=== PATIENT | female | born 1935 | race Caucasian/White ===

== ENCOUNTER 2016-11-07 00:37 | Inpatient (IN) | payer MEDICARE ==
[2016-11-07] VITALS (11 sets, daily range): BP systolic 130–205; BP diastolic 60–91; PULSE 88–119; RESP 14–33; TEMP 97.7–100.6; O2SAT 92–96
[~2016-11-07] VITALS: Ht 160 cm; Wt 64.4 kg
[~2016-11-07 00:37] MED LIST: ASPI81 PO; ATOR20TA42 PO; BACT800T5 PO; CALTCHW4 PO; CENTTAB9 PO; HYDR-2768 PO; METO50TA PO; Z.0.WALKERFRONT
[2016-11-07] MEDS ORDERED: CENTTAB PO (00:52)
[2016-11-07] MEDS ORDERED: HYDR25TA5 PO (00:52)
[2016-11-07] MEDS ORDERED: METO50TA PO (00:52)
[2016-11-07] MEDS ORDERED: ASPI1TAB69 PO (00:52)
[2016-11-07] MEDS ORDERED: ATOR20TA15 PO (00:52)
[2016-11-07] MEDS ORDERED: CALCTAB33 PO (00:52)
[2016-11-07] MEDS ORDERED: SODIUM CHLOR 0.9% 1000 ML INJ 1,000 ML IV SCH ×2 (00:59→02:30)
[2016-11-07] MEDS ORDERED: SODIUM CHLORIDE 0.9% FLUSH 10 ML FLUSH IVF PRN (01:00)
--- NOTE | 2016-11-07 01:10 | PD ---
HPI Chief Complaint: General Weakness Time Seen by Provider: 00:43 Travel History International Travel<30 days: No Contact w/Intl Traveler<30days: No Traveled to known affect area: No History of Present Illness HPI Send 81 year-old woman who presents to the emergency department brought in by EMS, with her family, for feeling weak. She lives by herself. She normally walks with a walker. Her daughter is visiting from out of state. The report she's been weaker over the past several days. At lunch today she can't walk to the restaurant had to be wheeled on her walker. Daughter left for the pain came back to find her on the couch. Patient states she was unable to get up off the couch on her own. She's had weakness that waxes and wanes in severity but has never been this bad before. She denies any other associated symptoms. No urinary complaints. No abdominal pain. No shortness of breath or chest pain. No other complaints. History Past Medical History Narrative Medical Hypertension hyperlipidemia Menopausal: Yes Social History Alcohol Use: Yes (OCCASSIONALLY) Tobacco Use: No Allergies-Medications (Allergen,Severity, Reaction): Coded Allergies: Epinephrine (Verified Allergy, Severe, 11/07/16) Morphine (Verified Allergy, Severe, 11/07/16) Xylocaine/Epinephrine (Verified Allergy, Severe, 05/08/16) LEGS WEAK; SOB; INTERMEDIATE REACTION Simvastatin (Unverified Allergy, Intermediate, SEVERE PAIN IN LEGS, ) Tramadol (Unverified Allergy, Intermediate, DOUBLE VISION , 05/08/16) Cephalexin (Unverified Allergy, Mild, ITCHING, 05/08/16) Lidocaine (Verified Allergy, Mild, 05/08/16) LEGS WEAK ; SOB Reported Meds & Prescriptions Reported Meds & Active Scripts Active Reported Calcium 600+D Plus Minerals (Calcium Carbonate-Vitamin D W/Minerals) 600-400 Mg- Unit Tab 1 Tab PO DAILY Centrum Silver (Multiple Vitamins W/ Minerals) 1 Tab 1 Tab PO DAILY Aspirin 81 Mg Tabdr 81 Mg PO DAILY Metoprolol Tartrate 50 Mg Tab 50 Mg PO BID Atorvastatin (Atorvastatin Calcium) 20 Mg Tab 20 Mg PO HS Hydrochlorothiazide 25 Mg Tab 25 Mg PO DAILY Review of Systems Except as stated in HPI: all other systems reviewed are Neg Physical Exam Narrative GENERAL: Elderly 81 year-old woman, no acute distress. SKIN: Focused skin assessment warm/dry. HEAD: Atraumatic. Normocephalic. EYES: Pupils equal and round. No scleral icterus. No injection or drainage. ENT: No nasal bleeding or discharge. Dry mucous membranes. NECK: Trachea midline. No JVD. CARDIOVASCULAR: Heart rate rapid but regular. No murmurs. RESPIRATORY: Mild tachypnea. Lungs are clear. No respiratory distress. GASTROINTESTINAL: Abdomen soft, non-tender, nondistended. Hepatic and splenic margins not palpable. MUSCULOSKELETAL: No obvious deformities. No edema. NEUROLOGICAL: Awake and alert. No obvious cranial nerve deficits. She has a suggestion of some right sided facial droop or asymmetry but it's really not clear. Overall her cranial nerve exam is unremarkable. She has generalized weakness and can't support her arms above the horizontal for more than 5 seconds , can't keep her legs up off the bed for more than one or 2 seconds. She has no focal weakness. Data Data Last Documented VS Vital Signs Date Time Temp Pulse Resp B/P Pulse Ox O2 Delivery O2 Flow Rate FiO2 11/07/16 01:36 116 20 188/83 95 Room Air 11/07/16 00:40 98.5 Orders Complete Blood Count With Diff (11/07/16 00:59) Comprehensive Metabolic Panel (11/07/16 00:59) Prothrombin Time / Inr (Pt) (11/07/16 00:59) Act Partial Throm Time (Ptt) (11/07/16 00:59) Troponin I (11/07/16 00:59) Thyroid Stimulating Hormone (11/07/16 00:59) Lactic Acid Sepsis Protocol (11/07/16 00:59) Urinalysis - C+S If Indicated (11/07/16 00:59) Chest, Single Ap (11/07/16 00:59) Ct Brain W/O Iv Contrast(Rout) (11/07/16 00:59) Blood Glucose (11/07/16 00:59) Ecg Monitoring (11/07/16 00:59) Iv Access Insert/Monitor (11/07/16 00:59) Cath For Specimen (11/07/16 00:59) Oximetry (11/07/16 00:59) Sodium Chloride 0.9% Flush (Ns Flush) (11/07/16 01:00) Sodium Chlor 0.9% 1000 Ml Inj (Ns 1000 M (11/07/16 00:59) Drug Screen, Random Urine (11/07/16 00:59) Alcohol (Ethanol) (11/07/16 00:59) Urine Culture (11/07/16 01:03) Sodium Chlor 0.9% 1000 Ml Inj (Ns 1000 M (11/07/16 02:15) Sodium Chlor 0.9% 1000 Ml Inj (Ns 1000 M (11/07/16 02:15) Admit Order (Ed Use Only) (11/07/16 ) Activity Bed Rest (11/07/16 02:23) Diet Regular Basic (11/07/16 Breakfast) Vital Signs (Adult) IZA.[id number] (11/07/16 02:23) Sodium Chlor 0.9% 1000 Ml Inj (Ns 1000 M (11/07/16 02:30) Labs Laboratory Tests Test 11/07/16 01:03 White Blood Count 4.8 TH/MM3 Red Blood Count 4.68 MIL/MM3 Hemoglobin 15.0 GM/DL Hematocrit 43.0 % Mean Corpuscular Volume 91.9 FL Mean Corpuscular Hemoglobin 32.0 PG Mean Corpuscular Hemoglobin 34.9 % Concent Red Cell Distribution Width 14.1 % Platelet Count 174 TH/MM3 Mean Platelet Volume 8.0 FL Neutrophils (%) (Auto) 77.1 % Lymphocytes (%) (Auto) 7.3 % Monocytes (%) (Auto) 13.8 % Eosinophils (%) (Auto) 1.2 % Basophils (%) (Auto) 0.6 % Neutrophils # (Auto) 3.7 TH/MM3 Lymphocytes # (Auto) 0.4 TH/MM3 Monocytes # (Auto) 0.7 TH/MM3 Eosinophils # (Auto) 0.1 TH/MM3 Basophils # (Auto) 0.0 TH/MM3 CBC Comment AUTO DIFF Differential Total Cells 100 Counted Neutrophils % (Manual) 56 % Band Neutrophils % 14 % Lymphocytes % 11 % Monocytes % 12 % Eosinophils % 1 % Basophils % 1 % Neutrophils # (Manual) 3.6 TH/MM3 Metamyelocytes 4 % Myelocytes 1 % Differential Comment FINAL DIFF MANUAL Platelet Estimate NORMAL Platelet Morphology Comment NORMAL Prothrombin Time 11.4 SEC Prothromb Time International 1.0 RATIO Ratio Activated Partial 23.1 SEC Thromboplast Time Urine Color YELLOW Urine Turbidity CLEAR Urine pH 6.5 Urine Specific [place] 1.022 Urine Protein 30 mg/dL Urine Glucose (UA) NEG mg/dL Urine Ketones NEG mg/dL Urine Occult Blood TRACE Urine Nitrite NEG Urine Bilirubin NEG Urine Urobilinogen LESS THAN 2.0 MG/DL Urine Leukocyte Esterase NEG Urine RBC 3 /hpf Urine WBC 1 /hpf Urine WBC Clumps RARE Urine Squamous Epithelial <1 /hpf Cells Urine Mucus FEW /lpf Microscopic Urinalysis Comment CATH-CULTURE IND Sodium Level 144 MEQ/L Potassium Level 3.8 MEQ/L Chloride Level 109 MEQ/L Carbon Dioxide Level 29.3 MEQ/L Anion Gap 6 MEQ/L Blood Urea Nitrogen 20 MG/DL Creatinine 0.73 MG/DL Estimat Glomerular Filtration 76 ML/MIN Rate Random Glucose 132 MG/DL Lactic Acid Level 1.8 mmol/L Calcium Level 9.1 MG/DL Total Bilirubin 0.4 MG/DL Aspartate Amino Transf 31 U/L (AST/SGOT) Alanine Aminotransferase 41 U/L (ALT/SGPT) Alkaline Phosphatase 80 U/L Troponin I LESS THAN 0.02 NG/ML Total Protein 7.3 GM/DL Albumin 3.9 GM/DL Thyroid Stimulating Hormone 3.070 uIU/ML 3rd Gen Urine Opiates Screen NEG Urine Barbiturates Screen NEG Urine Amphetamines Screen NEG Urine Benzodiazepines Screen NEG Urine Cocaine Screen NEG Urine Cannabinoids Screen NEG Ethyl Alcohol Level LESS THAN 3 MG/DL MDM Medical Decision Making Medical Screen Exam Complete: Yes Emergency Medical Condition: Yes Interpretation(s) My review of EKG: Sinus tachycardia rate of 116, normal axis, normal intervals, no definite evidence of acute ischemia. LABS: CBC unremarkable CMP seen them for BUN of 20 Lactate 1.8 Troponin negative TSH [address]: No acute intracranial abnormality. Age-related atrophy and suspected small vessel ischemic change in the white matter. Sphenoid sinus disease. Differential Diagnosis Infection, dehydration, electrolyte abnormalities, head bleed, other Narrative Course Medical decision making INITIAL: Is an 81 year-old woman presents emergent from generalized weakness. Unable to the couch. She appears very generally weak. I don't see any focal abnormalities. She has tachycardia, tachypnea, and appears clinically dehydrated. She states she's been eating and drinking normally. Her blood sugar is not abnormally high. We'll check labs, CT, x-ray, reassess. FINAL: 81 year-old woman generalized weakness. Etiology is unclear. She appears clinically dehydrated and her BUN to creatinine ratio is elevated. She is abnormal vital signs including tachypnea and tachycardia. Etiology is unclear. She given IV fluid hydration. She'll be admitted for observation and further evaluation. Diagnosis Primary Impression: Generalized weakness Rubén Cuellar MD Nov 07, 2016 01:10
[2016-11-07 01:22] LABS: AUTOMATED NEUTROPHIL # 3.7 TH/MM3 (1.8-7.7); BASOPHIL % 0.6 % (0.0-2.0); EOSINOPHIL # 0.1 TH/MM3 (0-0.4); EOSINOPHIL % 1.2 % (0.0-4.0); LYMPH % 7.3 % (9.0-44.0); LYMPHOCYTE # 0.4 TH/MM3 (1.0-4.8); MEAN CELL VOLUME 91.9 FL (80.0-100.0); MEAN CORPUSCULAR HGB CONC 34.9 % (32.0-36.0); MONO % 13.8 % (0.0-8.0); NEUT % 77.1 % (16.0-70.0); PLATELET COUNT 174 TH/MM3 (150-450); RED BLOOD COUNT 4.68 MIL/MM3 (4.00-5.30); RED CELL DISTRIBUTION WIDTH 14.1 % (11.6-17.2); WHITE BLOOD COUNT 4.8 TH/MM3 (4.0-11.0)
[2016-11-07 01:28] LABS: AMPHETAMINE, URINE NEG (NEG); BARBITURATES, URINE NEG (NEG); COCAINE, URINE NEG (NEG)
[2016-11-07 01:32] LABS: BLOOD, URINE TRACE (NEG); COMMENT (UR) CATH-CULTURE IND; CULTURE IF INDICATED CATH CULTURE IND; GLUCOSE,URINE NEG (NEG); KETONE, URINE NEG (NEG); MUCUS URINE FEW /lpf (OCC); NITRITE,URINE NEG (NEG); PH, URINE 6.5 (5.0-8.5); SQUAMOUS EPITHELIAL CELL URINE <1 /hpf (0-5); URINE COLOR YELLOW (YELLW/STRAW)
--- NOTE | 2016-11-07 01:32 | RADRPT ---
EXAM DATE/TIME: 11/07/2016 01:16 [facility] COMPARISON: CT BRAIN W/O CONTRAST, July 12, 2014, 11:20. INDICATIONS : Inability to ambulate and slurred speech. RADIATION DOSE: 35.93 CTDIvol (mGy) MEDICAL HISTORY : Hypertension. SURGICAL HISTORY : None. ENCOUNTER: Initial ACUITY: 1 day PAIN SCALE: 0/10 LOCATION: cranial TECHNIQUE: Multiple contiguous axial images were obtained of the head. Using automated exposure control and adj ustment of the mA and/or kV according to patient size, radiation dose was kept as low as reasonably a chievable to obtain optimal diagnostic quality images. FINDINGS: CEREBRUM: The ventricles and cortical sulci are widened. There is decreased density in the periventricular whit e matter. No evidence of midline shift, mass lesion, hemorrhage or acute infarction. No extra-axial fluid collections are seen. POSTERIOR FOSSA: The cerebellum and brainstem are intact. The 4th ventricle is midline. The cerebellopontine angle i s unremarkable. EXTRACRANIAL: The visualized portion of the orbits is intact. There is bilateral sphenoid sinus disease. SKULL: The calvaria is intact. No evidence of skull fracture. CONCLUSION: 1. No acute intracranial abnormality is seen. There is age-related atrophy and suspected small vessel ischemic change in the white matter. 2. Sphenoid sinus disease. Blue Morris MD on November 07, 2016 at 1:29 Board Certified Radiologist. This report was verified electronically.
[2016-11-07 01:33] LABS: APTT (PATIENT) 23.1 SEC (24.3-30.1); PROTHROMBIN TIME - PATIENT 11.4 SEC (9.8-11.6)
[2016-11-07 01:35] LABS: ALT (GPT) 41 U/L (10-53); ANION GAP 6 MEQ/L (5-15); AST (GOT) 31 U/L (15-37); BICARBONATE 29.3 MEQ/L (21.0-32.0); BLOOD UREA NITROGEN 20 MG/DL (7-18); CHLORIDE 109 MEQ/L (98-107); GLOMERULAR FILTRATION RATE 76 ML/MIN (>89); POTASSIUM 3.8 MEQ/L (3.5-5.1); SODIUM (NA) 144 MEQ/L (136-145)
[2016-11-07 01:45] LABS: ALKALINE PHOSPHATASE 80 U/L (45-117); TOTAL BILIRUBIN ADULT 0.4 MG/DL (0.2-1.0)
[2016-11-07 01:52] LABS: HEMO FLAGS AUTO DIFF
--- NOTE | 2016-11-07 01:53 | RADRPT ---
EXAM DATE/TIME: 11/07/2016 01:20 [facility] COMPARISON: CT THORAX W CONTRAST, July 12, 2014, 17:15. CHEST SINGLE AP, July 12, 2014, 11:37. INDICATIONS : Syncope. Weakness. MEDICAL HISTORY : None. SURGICAL HISTORY : None. ENCOUNTER: Initial ACUITY: 1 day PAIN SCORE: Non-responsive. LOCATION: Bilateral chest FINDINGS: A single view of the chest demonstrates the lungs to be symmetrically aerated without evidence of mas s, infiltrate or effusion. The cardiomediastinal contours are unremarkable. Osseous structures are intact. CONCLUSION: No acute disease. Blue Morris MD on November 07, 2016 at 1:50 Board Certified Radiologist. This report was verified electronically.
[2016-11-07] MEDS ORDERED: SODIUM CHLOR 0.9% 1000 ML INJ 1,000 ML IV ONE ×2 (02:15)
[2016-11-07 02:20] LABS: BANDS 14 % (0-6); BASOPHILS 1 % (0-2); EOSINOPHILS 1 % (0-4); METAMYELOCYTES 4 % (0-1); MYELOCYTES 1 % (0-0); NEUTROPHIL # MANUAL DIFF 3.6 TH/MM3 (1.8-7.7); PLATELET ESTIMATE SMEAR NORMAL (NORMAL); PLATELET MORPHOLOGY NORMAL (NORMAL); POLYS (SEG NEUTROPHILS) 56 % (16-70); SCAN/DIFF FINAL DIFF MANUAL; WBC DIFF SAMPLE 100
[2016-11-07] MEDS ORDERED: ONDANSETRON HCL 4 MG/2 ML VIAL IV ONE (03:15)
--- NOTE | 2016-11-07 11:46 | HHI.HP ---
HPI [facility] Primary Care Physician Piero Silva MD, PhD Admission Diagnosis generalized weakness Chief Complaint: weakness Travel History International Travel<30 Days: No Contact w/Intl Traveler <30 Da: No Traveled to Known Affected Are: No History of Present Illness - Pt is 81 yo woman admitted with AMS & generalized weaknesss with slurred speech. - CT brain (11/07/16) --> NO acute findings- Pt refused MRI brain d/t implanted uterine device (?) - Pt's daughter says she was placing phone calls to family innapropriately. Her bp was very high which could have caused some encephalopathy but I also explained bp autoregulation and cva possibility. She was also clinically dehydration and now with fever. Review of Systems Other ams Past Family Social History Past Medical History htn hyperlipidemia Reported Medications Calcium 600+D Plus Minerals (Calcium Carbonate-Vitamin D W/Minerals) 600-400 Mg- Unit Tab 1 Tab PO DAILY Centrum Silver (Multiple Vitamins W/ Minerals) 1 Tab 1 Tab PO DAILY Aspirin 81 Mg Tabdr 81 Mg PO DAILY Metoprolol Tartrate 50 Mg Tab 50 Mg PO BID Atorvastatin (Atorvastatin Calcium) 20 Mg Tab 20 Mg PO HS Allergies: Coded Allergies: Epinephrine (Verified Allergy, Severe, 11/07/16) Morphine (Verified Allergy, Severe, 11/07/16) Xylocaine/Epinephrine (Verified Allergy, Severe, 05/08/16) LEGS WEAK; SOB; INTERMEDIATE REACTION Simvastatin (Unverified Allergy, Intermediate, SEVERE PAIN IN LEGS, ) Tramadol (Unverified Allergy, Intermediate, DOUBLE VISION , 05/08/16) Cephalexin (Unverified Allergy, Mild, ITCHING, 05/08/16) Lidocaine (Verified Allergy, Mild, 05/08/16) LEGS WEAK ; SOB Family History nc Social History no etoh/tob Physical Exam Vital Signs heart reg lung cta abds/nt ext no edema Vital Signs Date Time Temp Pulse Resp B/P Pulse Ox O2 Delivery O2 Flow Rate FiO2 11/07/16 10:18 146/68 11/07/16 10:14 95 3.00 11/07/16 09:30 Nasal Cannula 3.00 11/07/16 09:15 110 33 161/78 94 11/07/16 09:06 Nasal Cannula 2.00 11/07/16 08:51 99.0 109 27 164/74 92 11/07/16 05:50 97.7 119 14 165/69 92 11/07/16 03:35 114 22 166/77 95 Room Air 11/07/16 01:36 116 20 188/83 95 Room Air 11/07/16 00:40 98.5 117 20 205/91 93 Laboratory Laboratory Tests Test 11/07/16 01:03 White Blood Count 4.8 Red Blood Count 4.68 Hemoglobin 15.0 Hematocrit 43.0 Mean Corpuscular Volume 91.9 Mean Corpuscular Hemoglobin 32.0 Mean Corpuscular Hemoglobin 34.9 Concent Red Cell Distribution Width 14.1 Platelet Count 174 Mean Platelet Volume 8.0 Neutrophils (%) (Auto) 77.1 Lymphocytes (%) (Auto) 7.3 Monocytes (%) (Auto) 13.8 Eosinophils (%) (Auto) 1.2 Basophils (%) (Auto) 0.6 Neutrophils # (Auto) 3.7 Lymphocytes # (Auto) 0.4 Monocytes # (Auto) 0.7 Eosinophils # (Auto) 0.1 Basophils # (Auto) 0.0 CBC Comment AUTO DIFF Differential Total Cells 100 Counted Neutrophils % (Manual) 56 Band Neutrophils % 14 Lymphocytes % 11 Monocytes % 12 Eosinophils % 1 Basophils % 1 Neutrophils # (Manual) 3.6 Metamyelocytes 4 Myelocytes 1 Differential Comment FINAL DIFF MANUAL Platelet Estimate NORMAL Platelet Morphology Comment NORMAL Prothrombin Time 11.4 Prothromb Time International 1.0 Ratio Activated Partial 23.1 Thromboplast Time Urine Color YELLOW Urine Turbidity CLEAR Urine pH 6.5 Urine Specific [place] 1.022 Urine Protein 30 Urine Glucose (UA) NEG Urine Ketones NEG Urine Occult Blood TRACE Urine Nitrite NEG Urine Bilirubin NEG Urine Urobilinogen LESS THAN 2.0 Urine Leukocyte Esterase NEG Urine RBC 3 Urine WBC 1 Urine WBC Clumps RARE Urine Squamous Epithelial <1 Cells Urine Mucus FEW Microscopic Urinalysis Comment CATH-CULTURE IND Sodium Level 144 Potassium Level 3.8 Chloride Level 109 Carbon Dioxide Level 29.3 Anion Gap 6 Blood Urea Nitrogen 20 Creatinine 0.73 Estimat Glomerular Filtration 76 Rate Random Glucose 132 Lactic Acid Level 1.8 Calcium Level 9.1 Total Bilirubin 0.4 Aspartate Amino Transf 31 (AST/SGOT) Alanine Aminotransferase 41 (ALT/SGPT) Alkaline Phosphatase 80 Troponin I LESS THAN 0.02 Total Protein 7.3 Albumin 3.9 Thyroid Stimulating Hormone 3.070 3rd Gen Urine Opiates Screen NEG Urine Barbiturates Screen NEG Urine Amphetamines Screen NEG Urine Benzodiazepines Screen NEG Urine Cocaine Screen NEG Urine Cannabinoids Screen NEG Ethyl Alcohol Level LESS THAN 3 Date/Time Procedure Status Source Growth 11/07/16 01:03 Urine Culture Received Urine Catheterized Urine Pending Result Diagram: 11/07/1610211/07/16102 Assessment and Plan Problem List: (1) Mental status change Status: Acute Plan: Pt admitted for AMS, general weakness, found to have severe elevation of htn low grade fevers. long discussion with daughter at bedside she is concerned about acute cva. CT head neg for acute cva. we discussed possibilities as she says pt had some slurred speech and a period of amnesia where she didn't recall placing phone calls to family. Her bp was very high which could have caused some encephalopathy but I also explained bp autoregulation and cva possibility. She was also clinically dehydration and now with fever. pt refused mri over concern of a device implanted in her uterus her mental status is currently improving and her strength is getting better. She walks with a walker at baseline. cont ivf -+ kcl given abx and blood cx pending. monitor for further fevers. Pt eval will need snf dvt prophylaxis bp more control. titrate meds as needed. (2) Generalized weakness Status: Acute Plan: see above (3) Fever Status: Acute Plan: see above (4) Hypokalemia Status: Acute Plan: see above (5) HTN (hypertension) Status: Acute Plan: see above Problem Qualifiers (1) HTN (hypertension): Qualified Code: I10 - Essential hypertension Kevon Tsai MD Nov 07, 2016 11:46
[2016-11-07 12:00] LABS: HEMATOCRIT 39.3 % (35.0-46.0); MEAN CELL VOLUME 91.1 FL (80.0-100.0); MEAN CORPUSCULAR HGB CONC 35.2 % (32.0-36.0); PLATELET COUNT 145 TH/MM3 (150-450); RED BLOOD COUNT 4.31 MIL/MM3 (4.00-5.30); RED CELL DISTRIBUTION WIDTH 14.3 % (11.6-17.2)
[2016-11-07 12:02] LABS: HEMO FLAGS AUTO DIFF
[2016-11-07 12:24] LABS: BICARBONATE 25.8 MEQ/L (21.0-32.0); POTASSIUM 3.1 MEQ/L (3.5-5.1)
[2016-11-07 12:36] LABS: BANDS 6 % (0-6); MYELOCYTES 1 % (0-0); NEUTROPHIL # MANUAL DIFF 4.2 TH/MM3 (1.8-7.7); POLYS (SEG NEUTROPHILS) 76 % (16-70); WBC DIFF SAMPLE 100
[2016-11-07 12:37] LABS: PLATELET ESTIMATE SMEAR NORMAL (NORMAL); PLATELET MORPHOLOGY NORMAL (NORMAL); SCAN/DIFF FINAL DIFF MANUAL
--- NOTE | 2016-11-07 14:32 | EKG ---
Date Performed: 11/07/2016 Time Performed: 00:48:18 PTAGE: 81 years EKG: SINUS TACHYCARDIA ST DEVIATION AND MODERATE T-WAVE ABNORMALITY, CONSIDER INFERIOR ISCHEMIA Compared to prior tracing no significant change ABNORMAL ECG INTERPRETATION BASED ON A DEFAULT AGE OF 40 YEARS NO PREVIOUS TRACING DOCTOR: Josi Piña Interpretating Date/Time 11/07/2016 14:31:22
[2016-11-07] MEDS ORDERED: ACETAMINOPHEN 325 MG TAB PO PRN (15:30)
[2016-11-07] MEDS: POTASSIUM CHLORIDE 20 MEQ CONTROLLED RELEASE TAB PO ONE ×2 (16:15→16:52)
[2016-11-07] MEDS: NS + KCL 20 MEQ INJ 1,000 ML IV SCH (16:53)
[2016-11-07] MEDS: cloNIDine HCL 0.1 MG TAB PO PRN (17:10)
[2016-11-07] MEDS ORDERED: POTASSIUM CHLORIDE 25 MEQ EFFERVESCENT TAB PO ONE (18:00)
[2016-11-07] MEDS: LEVOFLOXACIN 500 MG PREMIX INJ 100 ML IV SCH (18:38)
[2016-11-07] MEDS: METOPROLOL TARTRATE 50 MG TAB PO SCH (20:45)
[2016-11-07] MEDS: ATORVASTATIN 20 MG TAB PO SCH (20:45)
[2016-11-07] MEDS: LISINOPRIL 10 MG TAB PO SCH (20:46)
[2016-11-07] MEDS ORDERED: POTASSIUM CHLORIDE 20 MEQ CONTROLLED RELEASE TAB PO SCH (21:00)
[2016-11-08] VITALS (7 sets, daily range): BP systolic 110–147; BP diastolic 55–89; PULSE 60–88; RESP 16–20; TEMP 97–97.7; O2SAT 94–99
[2016-11-08] MEDS: NS + KCL 20 MEQ INJ 1,000 ML IV SCH ×2 (05:54→13:00)
[2016-11-08 06:32] LABS: BICARBONATE 26.7 MEQ/L (21.0-32.0); POTASSIUM 4.2 MEQ/L (3.5-5.1)
--- NOTE | 2016-11-08 08:54 | HHI.PR ---
Subjective Remarks pt doing much better. no slurred speech. moving ext's better. Objective Vitals heart reg lung cta abd s/nt ext no edema mouth still a little dry. able to lift arms/legs off bed no focal neuro deficit. Vital Signs Date Time Temp Pulse Resp B/P Pulse Ox O2 Delivery O2 Flow Rate FiO2 11/08/16 07:50 97.6 66 20 136/61 97 11/08/16 04:00 97.2 88 17 132/65 96 11/08/16 00:12 20 11/08/16 00:00 97.2 82 18 110/89 94 11/07/16 22:05 Nasal Cannula 2.50 11/07/16 21:00 94 Nasal Cannula 2.50 11/07/16 20:24 97.9 92 18 132/60 94 11/07/16 18:20 98.6 88 20 130/61 96 11/07/16 16:18 99.8 97 20 169/75 95 11/07/16 12:06 100.6 98 24 155/67 95 11/07/16 10:18 146/68 11/07/16 10:14 95 3.00 11/07/16 09:30 Nasal Cannula 3.00 11/07/16 09:15 110 33 161/78 94 11/07/16 09:06 Nasal Cannula 2.00 11/07/16 11/07/16 11/08/16 15:00 23:00 07:00 Intake Total 240 ml 511 ml 933 ml Balance 240 ml 511 ml 933 ml Intake Oral 240 ml 60 ml 240 ml IV Total 451 ml 693 ml # Voids 1 2 3 # Bowel Movements 1 Result Diagram: 11/07/16 1150 11/08/16 0527 A/P Problem List: (1) Mental status change Status: Acute Plan: Pt admitted for AMS, general weakness, found to have severe elevation of htn low grade fevers. long discussion with daughter at bedside she is concerned about acute cva. CT head neg for acute cva. we discussed possibilities as she says pt had some slurred speech and a period of amnesia where she didn't recall placing phone calls to family. Her bp was very high which could have caused some encephalopathy but I also explained bp autoregulation and cva possibility. She was also clinically dehydration and now with fever. pt refused mri over concern of a device implanted in her uterus her mental status is currently improving and her strength is getting better. She walks with a walker at baseline. cont ivf and stop later today. kcl replaced given abx and blood cx pending. monitor for further fevers. Pt eval will need snf dvt prophylaxis bp more control. titrate meds as needed. (2) Generalized weakness Status: Acute Plan: see above (3) HTN (hypertension) Status: Acute Plan: see above (4) Fever Status: Acute Plan: see above (5) Hypokalemia Status: Acute Plan: see above Kevon Tsai MD Nov 08, 2016 08:54
[2016-11-08] MEDS: MULTIVITAMIN HEMATINIC THERAPEUTIC TAB PO SCH (09:18)
[2016-11-08] MEDS: CALCIUM/VITAMIN D 250 MG/125 U TAB PO SCH (09:18)
[2016-11-08] MEDS: METOPROLOL TARTRATE 50 MG TAB PO SCH ×2 (09:18→22:04)
[2016-11-08] MEDS: ASPIRIN EC 81 MG TABEC PO SCH (09:18)
[2016-11-08] MEDS: LISINOPRIL 10 MG TAB PO SCH ×2 (09:18→22:04)
[2016-11-08] MEDS: LEVOFLOXACIN 500 MG PREMIX INJ 100 ML IV SCH (17:01)
[2016-11-08] MEDS: ATORVASTATIN 20 MG TAB PO SCH (22:06)
[2016-11-09] VITALS: BP 141/65; PULSE 58; RESP 17; TEMP 96.5; O2SAT 99
[2016-11-09 04:00] VITALS: BP 127/67; PULSE 66; RESP 18; TEMP 96.7; O2SAT 98
[2016-11-09 07:04] LABS: HEMATOCRIT 37.4 % (35.0-46.0); MEAN CELL VOLUME 92.7 FL (80.0-100.0); MEAN CORPUSCULAR HGB CONC 33.4 % (32.0-36.0); PLATELET COUNT 108 TH/MM3 (150-450); RED BLOOD COUNT 4.04 MIL/MM3 (4.00-5.30); RED CELL DISTRIBUTION WIDTH 14.5 % (11.6-17.2); WHITE BLOOD COUNT 5.4 TH/MM3 (4.0-11.0)
[2016-11-09 07:30] LABS: HEMO FLAGS AUTO DIFF
[2016-11-09 08:00] VITALS: BP 134/62; PULSE 68; RESP 18; TEMP 96.9; O2SAT 99
[2016-11-09 08:11] LABS: BANDS 7 % (0-6); EOSINOPHILS 1 % (0-4); MYELOCYTES 1 % (0-0); NEUTROPHIL # MANUAL DIFF 3.1 TH/MM3 (1.8-7.7); POLYS (SEG NEUTROPHILS) 49 % (16-70); WBC DIFF SAMPLE 100
[2016-11-09 08:12] LABS: PLATELET ESTIMATE SMEAR LOW (NORMAL); PLATELET MORPHOLOGY NORMAL (NORMAL); SCAN/DIFF FINAL DIFF MANUAL
[2016-11-09] MEDS: METOPROLOL TARTRATE 50 MG TAB PO SCH (09:04)
[2016-11-09] MEDS: MULTIVITAMIN HEMATINIC THERAPEUTIC TAB PO SCH (09:04)
[2016-11-09] MEDS: LISINOPRIL 10 MG TAB PO SCH (09:04)
[2016-11-09] MEDS: CALCIUM/VITAMIN D 250 MG/125 U TAB PO SCH (09:04)
[2016-11-09] MEDS: ASPIRIN EC 81 MG TABEC PO SCH (09:04)
--- NOTE | 2016-11-09 10:12 | HHI.PR ---
Subjective Remarks No new complaints. Pt is tolerating PO intake. Pt has NO reported difficulties with swallow or speech. Pt was able to ambulate short distance with PT. Pt exhibited global weakness, but NO focal weakness. Family feels pt is back to cognitive baseline. Objective Vitals Vital Signs Date Time Temp Pulse Resp B/P Pulse Ox O2 Delivery O2 Flow Rate FiO2 11/09/16 08:00 96.9 68 18 134/62 99 11/09/16 04:00 96.7 66 18 127/67 98 11/09/16 00:00 96.5 58 17 141/65 99 11/08/16 22:11 Nasal Cannula 2.50 11/08/16 20:08 66 11/08/16 20:00 97.2 60 16 130/55 99 11/08/16 15:50 97.7 71 20 147/65 98 11/08/16 11:50 97.0 65 20 130/62 11/08/16 11:50 63 11/08/16 11/08/16 11/09/16 15:00 23:00 07:00 Intake Total 837 ml 1065 ml 120 ml Balance 837 ml 1065 ml 120 ml Intake Oral 342 ml 240 ml 120 ml IV Total 495 ml 825 ml # Voids 4 1 3 # Bowel Movements 1 0 0 Result Diagram: 11/09/16 0528 11/08/16 0527 Imaging Last Impressions Head CT 11/07/1658 Signed Impressions: Service Date/Time: Monday, November 07, 2016 01:16 - CONCLUSION: 1. No acute intracranial abnormality is seen. There is age-related atrophy and suspected small vessel ischemic change in the white matter. 2. Sphenoid sinus disease. Blue Morris MD Chest X-Ray 11/07/1658 Signed Impressions: Service Date/Time: Monday, November 07, 2016 01:20 - CONCLUSION: No acute disease. Blue Morris MD Objective Remarks GENERAL: This is a well-nourished, well-developed patient, in no apparent distress. CARDIOVASCULAR: Regular rate and rhythm without murmurs, gallops, or rubs. RESPIRATORY: Clear to auscultation. Breath sounds equal bilaterally. No wheezes , rales, or rhonchi. GASTROINTESTINAL: Abdomen soft, non-tender, nondistended. Normal active bowel sounds MUSCULOSKELETAL: Extremities without clubbing, cyanosis, or edema. NEURO: A&O x 3, but confused at times. A/P Problem List: (1) Mental status change Status: Acute Plan: - Pt admitted with AMS & generalized weakness, slurred speech - On admission with had severe elevation of her HTN - Pt's mentation has resolved to baseline with control of her BP - CT brain (11/07/16) --> NO acute findings - Pt refused MRI brain d/t implanted uterine device (?) - Pt also with mild dehydration on admission & transient fever during this admission - now resolved - continue PT - will need SNF upon discharge - dvt prophylaxis 11/09/16 - Pt interviewed and examined in the presence of 2 of her daughters - Pt's daughters agree that mentation is back to baseline - Anticipate d/c to SNF this evening d/t generalized weakness - prior to d/c this evening will obtain T4, B12, folate, ammonia level, RPR - Would like to obtain MRI brain prior to discharge - Pt states that she cannot have MRI d/t retained IUD - Case d/w with Radiology - will obtain pelvis x-ray to determine if retained device, await results (2) Generalized weakness Status: Acute Plan: see above (3) HTN (hypertension) Status: Acute Plan: - much improved from admission - metoprolol, Prinivil (4) Fever Status: Acute Plan: - afebrile since 11/07/16 - NO leukocytosis - blood cx (11/07/16) --> NGTD - Urine Cx (11/07/16) --> NO growth at 48 hours (5) Hypokalemia Status: Resolved Plan: - resolved Problem Qualifiers (1) HTN (hypertension): Qualified Code: I10 - Essential hypertension Johnny Gil DO Nov 09, 2016 10:12
[2016-11-09] MEDS ORDERED: LISI10TA3 PO (10:34)
--- NOTE | 2016-11-09 11:01 | RADRPT ---
EXAM DATE/TIME: 11/09/2016 10:25 [facility] COMPARISON: HIP LEFT AP ONLY, December 29, 2013, 11:02. INDICATIONS : Evaluate for possible retained IUD device. MEDICAL HISTORY : None. SURGICAL HISTORY : IUD 40 years ago. ENCOUNTER: Initial ACUITY: 1 day PAIN SCORE: 0/10 LOCATION: Pelvis. FINDINGS: [id number] degenerative changes of the lumbar spine. Severe osteoarthritis of the right hip w ith joint space narrowing and osteophytosis. Heterotopic bone is seen adjacent to the left greater tr ochanter in this patient with left total hip arthroplasty. No radiographic evidence of loosening. No fractures. Radiopaque foreign body felt to represent an IUD device overlies the pelvis just to the ri ght of midline. CONCLUSION: IUD device as above. Jerrod Parra MD on November 09, 2016 at 10:58 Board Certified Radiologist. This report was verified electronically.
[2016-11-09 12:00] VITALS: BP 129/66; PULSE 70; RESP 16; TEMP 97.1; O2SAT 98
[2016-11-09 12:01] LABS: FREE T4 1.01 NG/DL (0.76-1.46)
[2016-11-09 15:59] LABS: RAPID PLASMA REAGIN SCREEN NON-REACTIVE (NON-REACTVE)
[2016-11-09 16:00] VITALS: BP 165/68; PULSE 64; RESP 18; TEMP 98; O2SAT 96
[2016-11-09] MEDS: cloNIDine HCL 0.1 MG TAB PO PRN (17:53)
[2016-11-09] MEDS: LEVOFLOXACIN 500 MG PREMIX INJ 100 ML IV SCH (17:53)
[2016-11-09 20:00] VITALS: BP 136/63; PULSE 70; RESP 17; TEMP 97.3; O2SAT 96
--- NOTE | 2016-11-23 22:15 | HHI.DS ---
Discharge Summary Admission Date Nov 07, 2016 at 16:06 Admitting Diagnosis generalized weakness (1) Mental status change Diagnosis: Principal (2) Generalized weakness Diagnosis: Principal (3) HTN (hypertension) (4) Fever Diagnosis: Secondary (5) Hypokalemia Diagnosis: Secondary PE at Discharge GENERAL: This is a well-nourished, well-developed patient, in no apparent distress. CARDIOVASCULAR: Regular rate and rhythm without murmurs, gallops, or rubs. RESPIRATORY: Clear to auscultation. Breath sounds equal bilaterally. No wheezes , rales, or rhonchi. GASTROINTESTINAL: Abdomen soft, non-tender, nondistended. Normal active bowel sounds MUSCULOSKELETAL: Extremities without clubbing, cyanosis, or edema. NEURO: A&O x 3, but confused at times. Hospital Course - Pt admitted with AMS & generalized weakness, slurred speech - On admission with had severe elevation of her HTN - Pt's mentation has resolved to baseline with control of her BP - CT brain (11/07/16) --> NO acute findings - Pt refused MRI brain d/t implanted uterine device (?) - Pt also with mild dehydration on admission & transient fever during this admission - now resolved - continue PT - will need SNF upon discharge -11/09/16 - Pt interviewed and examined in the presence of 2 of her daughters - Pt's daughters agree that mentation is back to baseline - Anticipate d/c to SNF this evening d/t generalized weakness Pt Condition on Discharge: Stable Discharge Disposition: Discharge to SNF Discharge Instructions DIET: Follow Instructions for: Heart Healthy Diet Activities you can perform: Weight Bearing as Katie Follow up Referrals: PCP Follow-up - [address] Piero Silva SN[facility]/ with [facility] New Medications: Lisinopril (Lisinopril) 10 Mg Tab 10 MG PO Q12HR HTN Days 30 TAB Continued Medications: Aspirin (Aspirin) 81 Mg Tabdr 81 MG PO DAILY TAB Atorvastatin (Atorvastatin) 20 Mg Tab 20 MG PO HS Cholesterol Management #30 Ref 0 TAB Calcium Carbonate-Vitamin D W/Minerals (Calcium 600+D Plus Minerals) 600-400 Mg- Unit Tab 1 TAB PO DAILY Nutritional Supplement Ref 0 TAB Metoprolol Tartrate (Metoprolol Tartrate) 50 Mg Tab 50 MG PO BID #30 Ref 0 TAB Multiple Vitamins W/ Minerals (Centrum Silver) 1 Tab 1 TAB PO DAILY Nutritional Supplement Ref 0 TAB Discontinued Medications: Hydrochlorothiazide (Hydrochlorothiazide) 25 Mg Tab 25 MG PO DAILY #30 Ref 0 TAB Kevon Tsai MD Nov 23, 2016 22:15
== END 2016-11-09 20:17 | DRG 641 ==
LOC: NEPE 00:37 → NEDA 02:25 → NEPGCP 05:23 → OBSVTOIN 16:06 → HOCA 18:19
PROVIDERS: ADMIT Hospitalist; ATTEND Hospitalist
DX: E86.0 Dehydration (principal); R50.9 Fever, unspecified; I10 Essential (primary) hypertension; E78.5 Hyperlipidemia, unspecified; E87.6 Hypokalemia; R47.81 Slurred speech; R41.82 Altered mental status, unspecified; R53.1 Weakness
CPT/HCPCS: 70450; 71010; 72170; 80048; 80053; 80307; 81001; 82140; 82550; 82607; 82746; 83605; 84439; 84443; 84484; 85007; 85027; 85610; 85730; 86592; 87040; 87086; 93005; 96360; J1956; J2405; J3480; J7030; P9612